=== PATIENT | male | born 1990 ===

== ENCOUNTER 2018-03-16 14:06 | Emergency (ER) | payer BC ==
--- NOTE | 2018-03-16 14:11 | ER Report ---
History and Physical Time Seen By MD: 14:11 HPI/ROS CHIEF COMPLAINT: Chest pain, shortness of breath HISTORY OF PRESENT ILLNESS: 27-year-old male patient presents to emergency room with complaint of chest pain shortness of breath. Patient states that he had gone out camping this weekend and had overindulged in alcoholic beverages. He states that he passed out Friday night, woke up the next morning and since then has been having this epigastric chest pain, and shortness of breath. He states he feels like he is having to work harder to breathe. He denies having any fevers, chills, vomiting or diarrhea. He states that last night while he was sleeping he did wake up several times with night feeling a he is having a hard time breathing. He states that he has not taken any medication for this. REVIEW OF SYSTEMS: Respiratory: As noted above Cardiovascular: As noted above Gastrointestinal: No vomiting, no abdominal pain. Musculoskeletal: No back pain. Allergies: Coded Allergies: No Known Drug Allergies (Unverified , 03/16/18) Home Meds No Active Prescriptions or Reported Meds Past Medical/Surgical History Patient has a past medical history of marijuana use, alcohol use. Patient denies any surgical history. Reviewed Nurses Notes: Yes Constitutional Vital Sign - Last 24 Hours 03/16/18 03/16/18 03/16/18 03/16/18 14:11 14:12 14:15 14:21 Temp 98.5 Pulse 83 74 Resp 16 12 B/P (MAP) 148/113 (125) 148/113 152/101 (118) Pulse Ox 96 95 O2 Delivery Room Air 03/16/18 03/16/18 03/16/18 03/16/18 14:30 14:36 14:51 15:00 Pulse 74 ??? Resp 17 24 B/P (MAP) 138/101 (113) 142/102 (115) Pulse Ox 96 03/16/18 03/16/18 03/16/18 03/16/18 15:06 15:15 15:21 15:30 Pulse 80 83 B/P (MAP) 135/96 (109) 137/83 (101) Pulse Ox 95 97 03/16/18 03/16/18 15:36 15:48 Temp 97.9 Pulse 84 Pulse Ox 96 Physical Exam General Appearance: The patient is alert, has no immediate need for airway protection and no current signs of toxicity. Respiratory: Chest is non tender, lungs are clear to auscultation. Cardiac: regular rate and rhythm Gastrointestinal: Abdomen is soft and non tender, no masses, bowel sounds normal. Musculoskeletal: Neck: Neck is supple and non tender. Extremities have full range of motion and are non tender. Skin: No rashes or lesions. DIFFERENTIAL DIAGNOSIS: After history and physical exam differential diagnosis was considered for chest pain including but not limited to myocardial ischemia, pericarditis pulmonary embolus, chest wall pain, pleural inflammation and pulmonary infectious causes. Medical Decision Making Data Points Result Diagram: 03/16/18 1440 03/16/18 1440 Laboratory Hematology Test 03/16/18 14:40 Red Blood Count 5.18 M/uL (4.00-5.60) Mean Corpuscular Volume 85.1 fL (80.0-96.0) Mean Corpuscular Hemoglobin 30.0 pg (26.0-33.0) Mean Corpuscular Hemoglobin Concent 35.2 g/dL (32.0-36.0) Red Cell Distribution Width 13.7 % (11.5-14.5) Mean Platelet Volume 7.8 fL (7.2-11.1) Neutrophils (%) (Auto) 55.5 % (39.4-72.5) Lymphocytes (%) (Auto) 33.5 % (17.6-49.6) Monocytes (%) (Auto) 9.6 % (4.1-12.4) Eosinophils (%) (Auto) 0.6 % (0.4-6.7) Basophils (%) (Auto) 0.8 % (0.3-1.4) Nucleated RBC Relative Count (auto) 0.2 /100WBC Neutrophils # (Auto) 2.9 K/uL (2.0-7.4) Lymphocytes # (Auto) 1.8 K/uL (1.3-3.6) Monocytes # (Auto) 0.5 K/uL (0.3-1.0) Eosinophils # (Auto) 0.0 K/uL (0.0-0.5) Basophils # (Auto) 0.0 K/uL (0.0-0.1) Nucleated RBC Absolute Count (auto) 0.01 K/uL D-Dimer Quantitative (PE/DVT) 0.34 ug/ml (0-0.50) Sodium Level 139 mmol/L (137-145) Potassium Level 3.7 mmol/L (3.5-5.0) Chloride Level 104 mmol/L (98-107) Carbon Dioxide Level 25 mmol/L (22-30) Blood Urea Nitrogen 8 mg/dl (9-21) Creatinine 0.70 mg/dl (0.66-1.25) Glomerular Filtration Rate Calc > 60.0 Random Glucose 122 mg/dl (75-110) Calcium Level 9.4 mg/dl (8.4-10.2) Total Bilirubin 1.0 mg/dl (0.2-1.3) Aspartate Amino Transf (AST/SGOT) 51 U/L (0-35) Alanine Aminotransferase (ALT/SGPT) 41 U/L (0-56) Alkaline Phosphatase 62 U/L (0-126) Troponin I < 0.012 ng/ml Total Protein 7.5 gm/dl (6.3-8.2) Albumin 4.3 g/dl (3.5-5.0) Amylase Level 66 U/L (0-110) Lipase 81 U/L (23-300) Chemistry Test 03/16/18 14:40 White Blood Count 5.3 k/uL (4.5-11.0) Red Blood Count 5.18 M/uL (4.00-5.60) Hemoglobin 15.5 g/dL (14.0-18.0) Hematocrit 44.0 % (42.0-52.0) Mean Corpuscular Volume 85.1 fL (80.0-96.0) Mean Corpuscular Hemoglobin 30.0 pg (26.0-33.0) Mean Corpuscular Hemoglobin Concent 35.2 g/dL (32.0-36.0) Red Cell Distribution Width 13.7 % (11.5-14.5) Platelet Count 205 K/uL (150-450) Mean Platelet Volume 7.8 fL (7.2-11.1) Neutrophils (%) (Auto) 55.5 % (39.4-72.5) Lymphocytes (%) (Auto) 33.5 % (17.6-49.6) Monocytes (%) (Auto) 9.6 % (4.1-12.4) Eosinophils (%) (Auto) 0.6 % (0.4-6.7) Basophils (%) (Auto) 0.8 % (0.3-1.4) Nucleated RBC Relative Count (auto) 0.2 /100WBC Neutrophils # (Auto) 2.9 K/uL (2.0-7.4) Lymphocytes # (Auto) 1.8 K/uL (1.3-3.6) Monocytes # (Auto) 0.5 K/uL (0.3-1.0) Eosinophils # (Auto) 0.0 K/uL (0.0-0.5) Basophils # (Auto) 0.0 K/uL (0.0-0.1) Nucleated RBC Absolute Count (auto) 0.01 K/uL D-Dimer Quantitative (PE/DVT) 0.34 ug/ml (0-0.50) Glomerular Filtration Rate Calc > 60.0 Calcium Level 9.4 mg/dl (8.4-10.2) Total Bilirubin 1.0 mg/dl (0.2-1.3) Aspartate Amino Transf (AST/SGOT) 51 U/L (0-35) Alanine Aminotransferase (ALT/SGPT) 41 U/L (0-56) Alkaline Phosphatase 62 U/L (0-126) Troponin I < 0.012 ng/ml Total Protein 7.5 gm/dl (6.3-8.2) Albumin 4.3 g/dl (3.5-5.0) Amylase Level 66 U/L (0-110) Lipase 81 U/L (23-300) Coagulation Test 03/16/18 14:40 D-Dimer Quantitative (PE/DVT) 0.34 ug/ml EKG/Imaging EKG Interpretation 12 lead EKG: Rhythm: normal sinus rhythm with sinus arrhythmia, ventricular rate of 67 bpm [place]: normal QRS: normal ST segments: normal Imaging EXAMINATION: Chest radiographs 2 views HISTORY: Chest pain. COMPARISON: None. FINDINGS: PA and lateral views of the chest are submitted. Lines/tubes: None. Lungs/pleura: No focal consolidation or pleural effusion. Heart: Negative. Mediastinum: Negative. Bony structures/body wall: Negative. IMPRESSION: No radiographic evidence of acute cardiopulmonary disease. Report Dictated By: Elaine Kee MD at 03/16/2018 3:08 PM Report E-Signed By: Elaine Kee MD at 03/16/2018 3:08 PM ED Course/Re-evaluation ED Course Patient was admitted and examined, history and physical were obtained. Differential diagnoses were considered. On examination lungs are clear, heart was regular, abdomen soft nontender. A CBC, CMP, troponin, EKG, chest x-ray were done. EKG showed a normal sinus rhythm, chest x-ray was negative. Lab results were unremarkable. Patient had a negative troponin as well as a negative d-dimer. I discussed results with the patient. We will go ahead and discharge him home at this time. I believe that he is likely having some gastritis which is causing the chest pain as he had some eschar the esophagus while he was passed out. I believe that is likely causing his discomfort as well as his difficulty with breathing. I would like him to go ahead and take Prilosec [id number] for the next 2 weeks. He is to follow-up with his primary care provider in the next week. I discussed this with the patient who verbalized understanding and agreement with plan. Decision to Disposition Date: March 16, 2018 Decision to Disposition Time: 15:34 Depart Departure Latest Vital Signs Vital Signs Date Time Temp Pulse Resp B/P (MAP) Pulse Ox O2 Delivery O2 Flow Rate FiO2 03/16/18 15:48 97.9 03/16/18 15:36 84 96 03/16/18 15:30 137/83 (101) 03/16/18 14:51 24 03/16/18 14:12 Room Air Impression: Primary Impression: Gastritis due to alcohol without hemorrhage Additional Impression: Chest pain Condition: Improved Disposition: HOME OR SELF-CARE New Scripts No Active Prescriptions or Reported Meds Patient Instructions: Chest Pain (ED) Additional Instructions: Increase fluid intake. Get plenty of rest. Follow up with your primary care provider in the next week. Buy some Prilosec at the store and take that for the next 2 weeks. Return to the ER if condition worsens. Problem Qualifiers Primary Impression: Gastritis due to alcohol without hemorrhage Chronicity: acute Qualified Codes: K29.20 - Alcoholic gastritis without bleeding Additional Impression: Chest pain Chest pain type: other chest pain Qualified Codes: R07.89 - Other chest pain JAZMINE KEVIN March 16, 2018 14:11
--- NOTE | 2018-03-16 14:39 | EKG ---
FACILITY: [facility] - [place] PATIENT NAME: BARBARA COOPER : [id number] MR: [id number] V: [id number] EXAM DATE: ORDERING PHYSICIAN: JAZMINE KEVIN TECHNOLOGIST: [place] Test Reason : SOB Blood Pressure : / mmHG Vent. Rate : 067 BPM Atrial Rate : 067 BPM P-R Int : 162 ms QRS Dur : 086 ms QT Int : 390 ms P-R-T Axes : 051 040 039 degrees QTc Int : 412 ms Sinus arrhythmia Nonspecific ST findings No previous ECGs available Confirmed by KENDRA CHAPMAN ([id number]) on 03/17/2018 5:25:03 AM Referred By: DORITA Confirmed By:KENDRA CHAPMAN
[2018-03-16 14:54] LABS: PLATELET COUNT, AUTOMATED 205 K/uL (150-450)
--- NOTE | 2018-03-16 15:13 | RADIOLOGY IMAGING REPORT ---
FACILITY: [facility] - [place] PATIENT NAME: Mike Mcwilliams : 1990 MR: [id number] V: [id number] EXAM DATE: ORDERING PHYSICIAN: JAZMINE KEVIN TECHNOLOGIST: [place] [facility] [place]: Mike Mcwilliams : 1990 Visit/Account:[id number] Date of Sevice: 03/16/2018 EXAMINATION: Chest radiographs 2 views HISTORY: Chest pain. COMPARISON: None. FINDINGS: PA and lateral views of the chest are submitted. Lines/tubes: None. Lungs/pleura: No focal consolidation or pleural effusion. Heart: Negative. Mediastinum: Negative. Bony structures/body wall: Negative. IMPRESSION: No radiographic evidence of acute cardiopulmonary disease. Report Dictated By: Elaine Kee MD at 03/16/2018 3:08 PM Report E-Signed By: Elaine Kee MD at 03/16/2018 3:08 PM WSN:[id number]
[2018-03-16 15:30] VITALS: BP 137/83
== END 2018-03-16 15:50 | disposition home or self-care (01) ==
LOC: ER 14:16
DX: K29.20 Alcoholic gastritis without bleeding (principal); R07.89 Other chest pain
CPT/HCPCS: 71046; 82040; 82150; 82247; 82310; 82374; 82435; 82565; 82947; 83690; 84075; 84132; 84155; 84295; 84450; 84460; 84484; 84520; 85025; 85379; 93005; 99284

== ENCOUNTER 2018-08-22 06:18 | Emergency (ER) | payer BC ==
[2018-08-22 06:19] VITALS: BP 136/101
--- NOTE | 2018-08-22 06:26 | ER Report ---
History and Physical Time Seen By MD: 06:22 Hx. of Stated Complaint: NURSING HOME CLEARANCE HPI/ROS CHIEF COMPLAINT: A clearance, alcohol intoxication HISTORY OF PRESENT ILLNESS: 28-year-old male brought in by police for evaluation for nursing home clearance. Patient voices no complaints. Patient denies any injuries. Patient denies significant past medical history. REVIEW OF SYSTEMS: Respiratory: No cough, no dyspnea. Cardiovascular: No chest pain, no palpitations. Gastrointestinal: No vomiting, no abdominal pain. Musculoskeletal: No back pain. Allergies: Coded Allergies: No Known Drug Allergies (Unverified , 08/22/18) Home Meds No Active Prescriptions or Reported Meds Reviewed Nurses Notes: Yes Old Medical Records Reviewed: Yes Hx Substance Use Disorder: No (marijuana ) Hx Alcohol Use: Yes (occ) Constitutional Vital Sign - Last 24 Hours 08/22/18 06:19 Temp 97.7 Pulse 95 Resp 16 B/P (MAP) 136/101 Pulse Ox 96 O2 Delivery Room Air Physical Exam General Appearance: The patient is alert, has no immediate need for airway protection and no current signs of toxicity. Palpation of the head and neck reveal no tenderness or trauma Eyes: Pupils equal and round no injection. Respiratory: Chest is non tender, lungs are clear to auscultation. Cardiac: regular rate and rhythm Gastrointestinal: Abdomen is soft and non tender, no masses, bowel sounds normal. Musculoskeletal: Neck: Neck is supple and non tender. Extremities have full range of motion and are non tender. Skin: No rashes or lesions. DIFFERENTIAL DIAGNOSIS: After history and physical exam differential diagnosis was considered for nursing home clearance, alcohol intoxication, polysubstance abuse Medical Decision Making ED Course/Re-evaluation ED Course Patient was minute to an examination room. H&P was done. The differential diagnoses was considered. On conical examination. Patient has no findings. His vital signs are stable. He is medically cleared for nursing home admission. Decision to Disposition Date: Aug 22, 2018 Decision to Disposition Time: 06:28 Depart Departure Latest Vital Signs Vital Signs Date Time Temp Pulse Resp B/P (MAP) Pulse Ox O2 Delivery O2 Flow Rate FiO2 08/22/18 06:19 97.7 95 16 136/101 96 Room Air Impression: Primary Impression: Medical clearance for incarceration Additional Impression: Alcohol intoxication Condition: Improved [facility] New Scripts No Active Prescriptions or Reported Meds Patient Instructions: Alcohol Intoxication (ED) Additional Instructions: Medical cleared for nursing home admission Problem Qualifiers Additional Impression: Alcohol intoxication Complication of substance-induced condition: uncomplicated Qualified Codes: F10.920 - Alcohol use, unspecified with intoxication, uncomplicated HALIMA SERNA DO Aug 22, 2018 06:26
== END 2018-08-22 06:30 ==
LOC: ER 06:20
DX: F10.920 Alcohol use, unspecified with intoxication, uncomplicated (principal)
CPT/HCPCS: 99281